=== PATIENT | female | born 2000 | race Caucasian/White ===

== ENCOUNTER 2020-08-22 18:47 | Emergency (ER) | payer OTHER ==
[~2020-08-22] VITALS: Ht 165.1 cm; Wt 104.3 kg
[2020-08-22 18:52] VITALS: BP 127/93
--- NOTE | 2020-08-22 19:40 | NUR ---
Pt c/o LLL pain x1 month. Steady gait, denies medical hx. See complete assessment for further details.
--- NOTE | 2020-08-22 19:41 | NUR ---
ERMD AT BEDSIDE. EVALUATING PATIENT.
--- NOTE | 2020-08-22 20:33 | NUR ---
CRUTCHES FITTED TO PT HEIGHT AND ARM LENGTH. PT DEMONSTRATED SAFE USE FOR APPROXIMATELY 30 FEET, PT STATED SHE FELT COMFORTABLE WITH USE.
[2020-08-22 20:54] VITALS: BP 127/93
--- NOTE | 2020-08-22 20:54 | NUR ---
Patient discharged with v/s stable. Written and verbal after care instructions given and explained. Patient verbalized understanding. Ambulatory with crutches, steady gait. All questions addressed prior to discharge. Advised to follow up with PMD.
== END 2020-08-22 20:54 | disposition home or self-care (01) ==
LOC: MED 18:47
DX: S80.12XA Contusion of left lower leg, initial encounter (principal); M76.52 Patellar tendinitis, left knee; W22.03XA Walked into furniture, initial encounter; Y93.89 Activity, other specified; Y92.89 Other specified places as the place of occurrence of the external cause; Y99.8 Other external cause status
CPT/HCPCS: 73590; 99283